=== PATIENT | female | born 1970 | race Caucasian/White ===

== ENCOUNTER → 2017-12-02 11:49 | Outpatient (CLI) | payer OTHER, SELFPAY ==
[2017-12-02 14:19] LABS: AST(SGOT) 12 U/L (15-37); Alanine Aminotransfer ALT/SGPT 20 U/L (13-56); Albumin, Serum 3.9 g/dL (3.2-5.0); Alkaline Phosphatase 69 U/L (45-117); Anion Gap 10 (5-15); BUN 7 mg/dL (7-18); BUN/Creat Ratio 9.7 RATIO (10-20); CRP < 2.90 mg/L (0.0-3.0); Calcium,Total 9.1 mg/dL (8.5-10.1); Chloride 103 mmol/L (98-107); Creatinine, Serum 0.72 mg/dL (0.55-1.02); EST Glomerular Filtration Rate 92 mL/min (>60); Est Glom Filt Rate - Afr Amer 111 mL/min (>60); Globulin 3.8 g/dL (2.2-4.2); Glucose 77 mg/dL (74-106); Potassium 3.8 mmol/L (3.5-5.1); Protein, Total 7.7 g/dL (6.4-8.2); Sodium Level 141 mmol/L (136-145)
[2017-12-02 14:23] LABS: Erythrocyte Sedimentation Rate 8 mm/hr (0-20)
[2017-12-02 14:26] LABS: Absolute Lymphocyte Count 2.03 X10^3/ul (0.83-4.51); Absolute Neutrophil Count 6.2 X10^3/uL (2.0-7.7); Basophil# 0.03 X10^3/uL; Basophil% 0.3 % (0-1); Eosinophil# 0.25 X10^3/uL; Eosinophils% 2.7 % (0-5); Hematocrit 43.9 % (37-47); Hemoglobin 14.9 g/dl (12.0-15.0); Lymphocyte # 2.03 X10^3/ul (4.0); Lymphocyte % 21.8 % (19-41); Mean Corp Hgb Conc 33.9 g/gl (32-36); Mean Corpuscular Hgb 28.6 pg (27.0-32.0); Mean Corpuscular Volume 84.3 fL (81-99); Mean Platelet Vol. 9.4 fl (6.2-12.0); Monocyte# 0.75 X10^3/uL; Monocyte% 8.1 % (0-10); Neutrophil # 6.22 X10^3/uL (2.7-7.7); Neutrophil % 66.9 % (47-70); Platelet Count 361 K/mm3 (150-450); RBC Distribution Width SD 39.4 fl (35.1-43.9); Red Blood Count 5.21 M/mm3 (4.2-5.4); White Blood Count 9.3 K/mm3 (4.4-11.0)
[2017-12-02 14:31] LABS: POSITIVE COUNT NO; POSITIVE DIFFERENTIAL NO; POSITIVE MORPHOLOGY NO
== END ==
PROVIDERS: Family Provider Family Medicine; PCP Family Medicine; Visit Provider Internal Medicine Rheumatology
DX: M06.4 Inflammatory polyarthropathy (principal); M35.00 Sjogren syndrome, unspecified; G47.30 Sleep apnea, unspecified; I10 Essential (primary) hypertension
CPT/HCPCS: 36415; 80053; 85025; 85652; 86140

== ENCOUNTER → 2018-05-28 09:58 | Outpatient (CLI) | payer OTHER, SELFPAY ==
[2018-05-28 12:22] LABS: Erythrocyte Sedimentation Rate 8 mm/hr (0-20)
[2018-05-28 12:30] LABS: Absolute Lymphocyte Count 1.92 X10^3/ul (0.83-4.51); Absolute Neutrophil Count 4.8 X10^3/uL (2.0-7.7); Basophil# 0.07 X10^3/uL; Basophil% 0.9 % (0-1); Eosinophil# 0.24 X10^3/uL; Eosinophils% 3.1 % (0-5); Hematocrit 42.3 % (37-47); Hemoglobin 13.8 g/dl (12.0-15.0); Lymphocyte # 1.92 X10^3/ul (4.0); Mean Corp Hgb Conc 32.6 g/gl (32-36); Mean Corpuscular Hgb 28.2 pg (27.0-32.0); Mean Corpuscular Volume 86.5 fL (81-99); Mean Platelet Vol. 9.6 fl (6.2-12.0); Monocyte# 0.64 X10^3/uL; Monocyte% 8.3 % (0-10); Neutrophil # 4.79 X10^3/uL (2.7-7.7); Neutrophil % 62.4 % (47-70); Platelet Count 331 K/mm3 (150-450); RBC Distribution Width CV 13.2 % (11.6-14.6); Red Blood Count 4.89 M/mm3 (4.2-5.4); White Blood Count 7.7 K/mm3 (4.4-11.0)
[2018-05-28 12:33] LABS: POSITIVE COUNT NO; POSITIVE DIFFERENTIAL NO; POSITIVE MORPHOLOGY NO
[2018-05-28 12:41] LABS: ALB/GLOB Ratio 1.1 RATIO (0.9-2.4); AST(SGOT) 11 U/L (15-37); Alanine Aminotransfer ALT/SGPT 19 U/L (13-56); Albumin, Serum 3.8 g/dL (3.2-5.0); Alkaline Phosphatase 63 U/L (45-117); Anion Gap 7 (5-15); BUN 10 mg/dL (7-18); BUN/Creat Ratio 13.7 RATIO (10-20); CRP < 2.90 mg/L (0.0-3.0); Calcium,Total 8.4 mg/dL (8.5-10.1); Chloride 107 mmol/L (98-107); Creatinine, Serum 0.73 mg/dL (0.55-1.02); EST Glomerular Filtration Rate 90 mL/min (>60); Est Glom Filt Rate - Afr Amer 109 mL/min (>60); Globulin 3.6 g/dL (2.2-4.2); Glucose 79 mg/dL (74-106); Potassium 3.9 mmol/L (3.5-5.1); Protein, Total 7.4 g/dL (6.4-8.2); Sodium Level 140 mmol/L (136-145)
== END ==
LOC: MTLAB 10:00
PROVIDERS: Family Provider Family Medicine; PCP Family Medicine; Referring Provider Internal Medicine Rheumatology; Visit Provider Internal Medicine Rheumatology
DX: M06.4 Inflammatory polyarthropathy (principal); M35.00 Sjogren syndrome, unspecified; G47.30 Sleep apnea, unspecified; I10 Essential (primary) hypertension
CPT/HCPCS: 36415; 80053; 85025; 85652; 86140

== ENCOUNTER → 2018-05-29 14:27 | Outpatient (CLI) | payer OTHER, SELFPAY ==
[2018-06-02 20:07] LABS: Red Blood Cell Count Test/G6PD 4.96 x10E6/uL (3.77-5.28)
[2018-06-03 11:56] LABS: G6PD Quant Test 259 (146-376)
== END ==
PROVIDERS: Family Provider Family Medicine; PCP Family Medicine; Referring Provider Internal Medicine Rheumatology; Visit Provider Internal Medicine Rheumatology
DX: M06.4 Inflammatory polyarthropathy (principal); M35.00 Sjogren syndrome, unspecified; G47.30 Sleep apnea, unspecified; I10 Essential (primary) hypertension; F41.9 Anxiety disorder, unspecified
CPT/HCPCS: 36415; 82955

== ENCOUNTER → 2019-01-12 14:18 | Outpatient (CLI) | payer OTHER, SELFPAY ==
[2019-01-12 15:24] LABS: Absolute Lymphocyte Count 1.65 X10^3/uL (0.83-4.51); Absolute Neutrophil Count 4.4 X10^3/uL (2.0-7.7); Basophil# 0.07 X10^3/uL; Eosinophil# 0.29 X10^3/uL; Hematocrit 41.6 % (37-47); Hemoglobin 13.7 g/dL (12.0-15.0); Lymphocyte # 1.65 X10^3/ul (4.0); Lymphocyte % 22.9 % (19-41); Mean Corp Hgb Conc 32.9 g/dL (32-36); Mean Corpuscular Hgb 28.2 pg (27.0-32.0); Mean Corpuscular Volume 85.6 fL (81-99); Mean Platelet Vol. 9.5 fl (6.2-12.0); Monocyte# 0.77 X10^3/uL; Monocyte% 10.7 % (0-10); NRBC Flagged by Analyzer 0 % (0-5); Neutrophil % 61.1 % (47-70); Platelet Count 333 K/mm3 (150-450); RBC Distribution Width SD 40.7 fl (35.1-43.9); Red Blood Count 4.86 M/mm3 (4.2-5.4); White Blood Count 7.2 K/mm3 (4.4-11.0)
[2019-01-12 15:45] LABS: ALB/GLOB Ratio 1.1 RATIO (0.9-2.4); AST(SGOT) 14 U/L (15-37); Alanine Aminotransfer ALT/SGPT 24 U/L (13-56); Albumin, Serum 3.9 g/dL (3.2-5.0); Alkaline Phosphatase 72 U/L (45-117); Anion Gap 6 (5-15); BUN 11 mg/dL (7-18); BUN/Creat Ratio 14.5 RATIO (10-20); Chloride 102 mmol/L (98-107); Creatinine, Serum 0.76 mg/dL (0.55-1.02); EST Glomerular Filtration Rate 86 mL/min (>60); Est Glom Filt Rate - Afr Amer 104 mL/min (>60); Globulin 3.7 g/dL (2.2-4.2); Glucose 78 mg/dL (74-106); Potassium 3.9 mmol/L (3.5-5.1); Protein, Total 7.6 g/dL (6.4-8.2); Sodium Level 138 mmol/L (136-145)
== END ==
LOC: MTLAB 14:20
PROVIDERS: Family Provider Family Medicine; PCP Family Medicine; Referring Provider Internal Medicine Rheumatology; Visit Provider Internal Medicine Rheumatology
DX: M06.4 Inflammatory polyarthropathy (principal); M35.00 Sjogren syndrome, unspecified; G47.30 Sleep apnea, unspecified; I10 Essential (primary) hypertension; F41.9 Anxiety disorder, unspecified
CPT/HCPCS: 36415; 80053; 85025